=== PATIENT | female | born 1955 | race Caucasian/White ===

== ENCOUNTER → 2018-07-13 | Outpatient (CLI) | payer MEDICARE ==
[2018-07-13 09:52] LABS: CULTURE INDICATED? YES; MICROSCOPIC AUTO
[2018-07-13 09:54] LABS: BASOPHILS # (AUTO) 0.03 x10^3/uL (0-0.1); BASOPHILS % (AUTO) 0 % (0-1); EOSINOPHILS # (AUTO) 0.21 x10^3/uL (0-0.4); EOSINOPHILS % (AUTO) 2 % (1-7); HCT (SEDRATE) 44.3 % (34.6-47.8); LYMPHOCYTES % (AUTO) 20 % (22-44); MD NO; MEAN CORPUSCULAR HEMOGLOBIN 32.2 pg (27.0-34.8); MEAN CORPUSCULAR HGB CONC 34.6 g/dL (32.4-35.8); MEAN CORPUSCULAR VOLUME 93.1 fL (80-100); MEAN PLATELET VOLUME 7.7 fL (7.4-10.4); MONOCYTES # (AUTO) 0.42 x10^3/uL (0.2-0.8); MONOCYTES % (AUTO) 4 % (2-9); NEUTROPHILS # (AUTO) 7.34 x10^3/uL (1.8-6.8); NEUTROPHILS % (AUTO) 73 % (42-75); PLATELET COUNT 201 x10^3/uL (130-400); RED BLOOD COUNT 4.79 x10^6/uL (3.82-5.3); RED CELL DISTRIBUTION WIDTH 12.6 % (9.6-15.2)
[2018-07-13 10:02] LABS: INTERNATIONAL NORMALIZED RATIO 0.97 (0.93-1.1); PROTHROMBIN TIME 10.2 Seconds (9.6-11.5)
[2018-07-13 10:12] LABS: CALCIUM 9.1 mg/dL (8.5-10.1)
[2018-07-13 10:41] LABS: ALANINE AMINOTRANSFERASE 22 U/L (12-78); ALBUMIN 4.1 g/dL (3.4-5.0); ALKALINE PHOSPHATASE 47 U/L (45-117); ANION GAP 6 mmol/L (5-15); BILIRUBIN,TOTAL 0.4 mg/dL (0.2-1.0); CHLORIDE 109 mmol/L (98-107); CREATININE 0.92 mg/dL (0.55-1.02); TOTAL PROTEIN 7.2 g/dL (6.4-8.2)
== END | disposition home or self-care (01) ==
LOC: STAR 08:21
PROVIDERS: ATTEND Orthopaedic Surgery Orthopaedic Surgery of the Spine
DX: Z01.818 Encounter for other preprocedural examination (principal); M41.9 Scoliosis, unspecified; M48.061 Spinal stenosis, lumbar region without neurogenic claudication; M54.16 Radiculopathy, lumbar region; R94.31 Abnormal electrocardiogram [ECG] [EKG]
CPT/HCPCS: 36415; 71046; 80053; 81001; 85025; 85610; 85651; 85730; 87077; 87086; 93005

== ENCOUNTER 2018-07-19 08:31 | Inpatient (IN) | payer MEDICARE ==
[2018-07-13 09:20] VITALS: BP 107/65
[~2018-07-19] VITALS: Ht 162.6 cm; Wt 78.0 kg
[~2018-07-19 08:31] MED LIST: CALC600T4 PO; CETI-158 PO; CHOL400T10 PO; CYAN25003 PO; LACT1CAP37 PO; MULT1TAB60 PO; OMEP20TA62 PO; OXYC10TA6 PO; POLY17PO5 PO; TRAZ-137 PO
[2018-07-19] MEDS ORDERED: VANCOMYCIN PMX 1GM/200ML 200 ML IV ONE (09:08)
[2018-07-19] MEDS ORDERED: LACTATED RINGERS 1,000 ML IV SCH (09:30)
[2018-07-19] MEDS ORDERED: BUPIVACAINE/PF-EPI 0.5% 1:200K ONE (10:21)
[2018-07-19] MEDS ORDERED: TRANEXAMIC ACID 100 MG/ML, 10ML ONE ×2 (10:21→10:22)
[2018-07-19] MEDS ORDERED: THROMBIN 20,000 UNIT VIAL TP ONE (10:22)
[2018-07-19] MEDS ORDERED: VANCOMYCIN 1,000 MG ONE (10:22)
[2018-07-19] MEDS ORDERED: BACITRACIN 50,000 UNIT ONE (10:22)
[2018-07-19] MEDS ORDERED: MICROFIBRILLAR COLLAGEN 1 GM TP ONE (10:22)
[2018-07-19] MEDS ORDERED: KETAMINE 10 MG/ML, 20ML ONE (10:26)
[2018-07-19] MEDS ORDERED: SUFentanil 50 MCG/ML, 5ML ONE (10:27)
[2018-07-19] MEDS ORDERED: OxyconTIN ER 10 MG TAB.ER PO ONE (10:30)
[2018-07-19] MEDS ORDERED: SCOPOLAMINE PATCH, 1.5MG PATCH.TD72 TD ONE (10:30)
[2018-07-19] MEDS ORDERED: ACETAMINOPHEN 500 MG TABLET PO ONE (10:30)
[2018-07-19] MEDS ORDERED: GABAPENTIN 300 MG CAPSULE PO ONE (10:30)
[2018-07-19] MEDS ORDERED: PROPOFOL 150 ML ONE (10:36)
[2018-07-19] MEDS ORDERED: OXYcodone 5 MG/5 ML ORAL.SOL UDC PO PRN (11:00)
[2018-07-19] MEDS ORDERED: FENTANYL PF 100 MCG/2ML IV PRN (11:00)
[2018-07-19] MEDS ORDERED: PROMETHAZINE 25 MG/ML, 1ML IV PRN (11:00)
[2018-07-19] MEDS ORDERED: ONDANSETRON 2MG/ML, 2ML IV PRN ×2 (11:00→20:30)
[2018-07-19] MEDS ORDERED: hydrALAzine 20 MG/ML, 1ML IV PRN (11:00)
[2018-07-19] MEDS ORDERED: LABETALOL 5MG/ML, 20ML IV PRN ×2 (11:00→20:30)
[2018-07-19] MEDS ORDERED: ONDANSETRON ODT 8 MG PO PRN (11:00)
[2018-07-19] MEDS ORDERED: EPHEDRINE 50 MG/ML, 1ML ONE (11:08)
[2018-07-19] MEDS ORDERED: PROPOFOL 10 MG/ML, 50ML ONE (11:08)
[2018-07-19] MEDS ORDERED: SUCCINYLCHOLINE 20 MG/ML, 10ML ONE (13:45)
[2018-07-19] MEDS ORDERED: NEOSTIGMINE 1 MG/ML, 10ML ONE (13:45)
[2018-07-19] MEDS ORDERED: CEFAZOLIN 1,000 MG ONE (13:45)
[2018-07-19] MEDS ORDERED: GLYCOPYRROLATE 0.2MG/1ML, 5ML ONE (13:45)
[2018-07-19] MEDS ORDERED: DEXAMETHASONE 4 MG/ML, 1ML ONE (13:45)
[2018-07-19] MEDS ORDERED: ONDANSETRON 2MG/ML, 2ML ONE (13:45)
[2018-07-19] MEDS ORDERED: LIDOCAINE-MPF 2% ,5ML ONE ×3 (13:45)
[2018-07-19] MEDS ORDERED: ROCURONIUM 10MG/ML,5ML ONE (13:45)
[2018-07-19] MEDS ORDERED: PROPOFOL 10 MG/ML, 20ML ONE (13:45)
[2018-07-19] MEDS: HYDROmorphone PCA 30 MG/30 ML IV PRN (17:33)
[2018-07-19] MEDS ORDERED: FENTANYL PF 100 MCG/2ML ONE (17:40)
[2018-07-19] MEDS ORDERED: HYDROmorphone 2 MG/ML, 1ML ONE (17:41)
[2018-07-19] MEDS ORDERED: OXYcodone 5 MG/5 ML ORAL.SOL UDC ONE (17:41)
[2018-07-19] MEDS: HYDROmorphone 2 MG/ML, 1ML IVPush PRN ×4 (17:52→18:58)
[2018-07-19 19:48] VITALS: BP 124/74
[2018-07-19] MEDS ORDERED: CEFAZOLIN PMX 1GM/50ML 50 ML IVPB SCH (20:30)
[2018-07-19] MEDS ORDERED: HYDROmorphone 2MG TABLET PO PRN (20:30)
[2018-07-19] MEDS ORDERED: DIPHENHYDRAMINE 50 MG CAPSULE PO PRN (20:30)
[2018-07-19] MEDS ORDERED: KETOROLAC 30 MG/1 ML IV ONE (20:30)
[2018-07-19] MEDS ORDERED: ACETAMINOPHEN 650 MG SUPP PR PRN (20:30)
[2018-07-19] MEDS ORDERED: DIAZEPAM 5 MG/ML, 2ML IV PRN (20:30)
[2018-07-19] MEDS ORDERED: ACETAMINOPHEN 500 MG TABLET PO PRN (20:30)
[2018-07-19] MEDS ORDERED: DIPHENHYDRAMINE 50 MG/ML, 1ML IVPush PRN (20:30)
[2018-07-19] MEDS ORDERED: HYDROmorphone 2 MG/ML, 1ML IM PRN (20:30)
[2018-07-19] MEDS ORDERED: SODIUM CHLORIDE 0.9% 1,000ML IV SCH (20:30)
[2018-07-19] MEDS ORDERED: PHARMACY MAY ADJ FOR RENAL FX MC PRN (20:30)
[2018-07-19] MEDS ORDERED: PROMETHAZINE 25 MG/ML, 1ML IM PRN (20:30)
[2018-07-19] MEDS ORDERED: DIPHENHYDRAMINE 50 MG/ML, 1ML IM PRN (20:30)
[2018-07-19] MEDS ORDERED: BISACODYL 10 MG SUPP PR PRN (20:30)
[2018-07-19] MEDS ORDERED: MAGNESIUM HYDROXIDE 8%, 30ML UDC PO PRN (20:30)
[2018-07-19] MEDS ORDERED: POLYETHYLENE GLYCOL 17 GM PACKET PO PRN (21:00)
[2018-07-19] MEDS ORDERED: TRAZODONE 100MG TABLET PO PRN (21:00)
[2018-07-19] MEDS ORDERED: ZOLPIDEM 5MG TABLET PO PRN (21:00)
[2018-07-19] MEDS: CHOLECALCIFEROL 400 UNITS TABLET PO SCH (21:30)
[2018-07-19] MEDS: CALCIUM CARBONATE 500 MG TAB.CHEW PO SCH (21:30)
[2018-07-19] MEDS: D5%-0.9% NACL+KCL 20MEQ 1,000 ML IV SCH (21:30)
[2018-07-19] MEDS: CEFAZOLIN PMX 1GM/50ML 50 ML IVPB SCH (21:56)
[2018-07-20 00:06] VITALS: BP 106/66
[2018-07-20] MEDS ORDERED: KETOROLAC 30 MG/1 ML IM PRN (04:00)
[2018-07-20 04:19] VITALS: BP 105/58
[2018-07-20] MEDS: OMEPRAZOLE 20 MG CAPSULE.DR PO SCH (05:08)
[2018-07-20] MEDS: CEFAZOLIN PMX 1GM/50ML 50 ML IVPB SCH (05:08)
[2018-07-20 05:46] LABS: BASOPHILS # (AUTO) 0.02 x10^3/uL (0-0.1); BASOPHILS % (AUTO) 0 % (0-1); EOSINOPHILS % (AUTO) 0 % (1-7); LYMPHOCYTES # (AUTO) 1.23 x10^3/uL (1-3.4); LYMPHOCYTES % (AUTO) 10 % (22-44); MD NO; MEAN CORPUSCULAR HEMOGLOBIN 32.8 pg (27.0-34.8); MEAN CORPUSCULAR HGB CONC 34.9 g/dL (32.4-35.8); MEAN CORPUSCULAR VOLUME 94.1 fL (80-100); MEAN PLATELET VOLUME 7.4 fL (7.4-10.4); MONOCYTES # (AUTO) 0.98 x10^3/uL (0.2-0.8); MONOCYTES % (AUTO) 8 % (2-9); NEUTROPHILS # (AUTO) 10.73 x10^3/uL (1.8-6.8); NEUTROPHILS % (AUTO) 83 % (42-75); PLATELET COUNT 177 x10^3/uL (130-400); RED BLOOD COUNT 3.13 x10^6/uL (3.82-5.3); RED CELL DISTRIBUTION WIDTH 12.9 % (9.6-15.2)
[2018-07-20] MEDS: D5%-0.9% NACL+KCL 20MEQ 1,000 ML IV SCH ×2 (06:24→18:05)
[2018-07-20 06:56] VITALS: BP 116/70
[2018-07-20] MEDS: CYANOCOBALAMIN 1,000 MCG TABLET PO SCH (09:35)
[2018-07-20] MEDS: CALCIUM CARBONATE 500 MG TAB.CHEW PO SCH ×2 (09:35→20:38)
[2018-07-20] MEDS: LACTOBACILLUS CHEW TABLET PO SCH (09:35)
[2018-07-20] MEDS: CHOLECALCIFEROL 400 UNITS TABLET PO SCH ×2 (09:35→20:38)
[2018-07-20] MEDS: SENNA/DOCUSATE TABLET PO SCH (09:35)
[2018-07-20] MEDS: MULTIVITAMIN 1 TABLET PO SCH (09:35)
[2018-07-20] MEDS: CETIRIZINE 10 MG TABLET PO SCH (09:35)
[2018-07-20 12:32] VITALS: BP 112/67
[2018-07-20] MEDS: DEXAMETHASONE 4 MG/ML, 1ML IV PRN ×2 (15:44→22:37)
[2018-07-20] MEDS: OXYcodone IR 5MG TABLET PO PRN ×2 (15:44→20:38)
[2018-07-20 19:19] VITALS: BP 137/70
[2018-07-21 01:12] VITALS: BP 136/79
[2018-07-21] MEDS: D5%-0.9% NACL+KCL 20MEQ 1,000 ML IV SCH ×2 (02:37→13:53)
[2018-07-21] MEDS: OXYcodone IR 5MG TABLET PO PRN ×7 (02:44→21:01)
[2018-07-21 04:48] LABS: BASOPHILS # (AUTO) 0.01 x10^3/uL (0-0.1); BASOPHILS % (AUTO) 0 % (0-1); EOSINOPHILS % (AUTO) 0 % (1-7); LYMPHOCYTES % (AUTO) 5 % (22-44); MD NO; MEAN CORPUSCULAR HEMOGLOBIN 32.8 pg (27.0-34.8); MEAN CORPUSCULAR HGB CONC 34.7 g/dL (32.4-35.8); MEAN CORPUSCULAR VOLUME 94.4 fL (80-100); MEAN PLATELET VOLUME 7.7 fL (7.4-10.4); MONOCYTES # (AUTO) 0.62 x10^3/uL (0.2-0.8); MONOCYTES % (AUTO) 4 % (2-9); NEUTROPHILS # (AUTO) 14.63 x10^3/uL (1.8-6.8); NEUTROPHILS % (AUTO) 91 % (42-75); PLATELET COUNT 162 x10^3/uL (130-400); RED BLOOD COUNT 2.88 x10^6/uL (3.82-5.3); RED CELL DISTRIBUTION WIDTH 13.1 % (9.6-15.2)
[2018-07-21] MEDS: OMEPRAZOLE 20 MG CAPSULE.DR PO SCH (05:44)
[2018-07-21 07:12] VITALS: BP 138/74
[2018-07-21] MEDS: CHOLECALCIFEROL 400 UNITS TABLET PO SCH ×2 (09:25→21:01)
[2018-07-21] MEDS: MULTIVITAMIN 1 TABLET PO SCH (09:25)
[2018-07-21] MEDS: CETIRIZINE 10 MG TABLET PO SCH (09:26)
[2018-07-21] MEDS: SENNA/DOCUSATE TABLET PO SCH (09:26)
[2018-07-21] MEDS: CALCIUM CARBONATE 500 MG TAB.CHEW PO SCH ×2 (09:26→21:01)
[2018-07-21] MEDS: LACTOBACILLUS CHEW TABLET PO SCH (09:26)
[2018-07-21] MEDS: CYANOCOBALAMIN 1,000 MCG TABLET PO SCH (09:52)
[2018-07-21] MEDS: HYDROmorphone PCA 30 MG/30 ML IV PRN (12:02)
[2018-07-21 13:00] VITALS: BP 152/71
[2018-07-21] MEDS ORDERED: HYDROmorphone PCA 30 MG/30 ML IV PRN (13:12)
[2018-07-21 20:55] VITALS: BP 144/71
[2018-07-21] MEDS: DIAZEPAM 5 MG TABLET PO PRN (21:52)
[2018-07-21] MEDS: DEXAMETHASONE 4 MG/ML, 1ML IV PRN (21:53)
[2018-07-22] MEDS: OXYcodone IR 5MG TABLET PO PRN ×3 (00:21→06:29)
[2018-07-22 00:56] VITALS: BP 146/71
[2018-07-22] MEDS: D5%-0.9% NACL+KCL 20MEQ 1,000 ML IV SCH ×3 (01:44→21:16)
[2018-07-22] MEDS: DIAZEPAM 5 MG TABLET PO PRN (04:30)
[2018-07-22 05:14] LABS: BASOPHILS # (AUTO) 0.01 x10^3/uL (0-0.1); BASOPHILS % (AUTO) 0 % (0-1); EOSINOPHILS % (AUTO) 0 % (1-7); LYMPHOCYTES # (AUTO) 0.87 x10^3/uL (1-3.4); LYMPHOCYTES % (AUTO) 6 % (22-44); MD NO; MEAN CORPUSCULAR HEMOGLOBIN 33.1 pg (27.0-34.8); MEAN CORPUSCULAR HGB CONC 34.9 g/dL (32.4-35.8); MEAN CORPUSCULAR VOLUME 94.7 fL (80-100); MEAN PLATELET VOLUME 7.5 fL (7.4-10.4); MONOCYTES # (AUTO) 0.51 x10^3/uL (0.2-0.8); MONOCYTES % (AUTO) 4 % (2-9); NEUTROPHILS # (AUTO) 12.87 x10^3/uL (1.8-6.8); NEUTROPHILS % (AUTO) 90 % (42-75); PLATELET COUNT 154 x10^3/uL (130-400); RED BLOOD COUNT 2.59 x10^6/uL (3.82-5.3); RED CELL DISTRIBUTION WIDTH 13.3 % (9.6-15.2)
[2018-07-22] MEDS: OMEPRAZOLE 20 MG CAPSULE.DR PO SCH (06:29)
[2018-07-22 09:13] VITALS: BP 136/60
[2018-07-22] MEDS: CYANOCOBALAMIN 1,000 MCG TABLET PO SCH (09:23)
[2018-07-22] MEDS: CHOLECALCIFEROL 400 UNITS TABLET PO SCH ×2 (09:25→21:16)
[2018-07-22] MEDS: CETIRIZINE 10 MG TABLET PO SCH (09:25)
[2018-07-22] MEDS: LACTOBACILLUS CHEW TABLET PO SCH (09:25)
[2018-07-22] MEDS: CALCIUM CARBONATE 500 MG TAB.CHEW PO SCH ×2 (09:26→21:16)
[2018-07-22] MEDS: MULTIVITAMIN 1 TABLET PO SCH (09:29)
[2018-07-22] MEDS: SENNA/DOCUSATE TABLET PO SCH (09:29)
[2018-07-22] MEDS ORDERED: OXYcodone IR 5MG TABLET PO SCH (13:30)
[2018-07-22] MEDS: NAPROXEN 500 MG TABLET PO SCH (13:58)
[2018-07-22] MEDS: OXYcodone IR 5MG TABLET PO SCH ×4 (13:58→22:37)
[2018-07-22 14:43] VITALS: BP 131/70
[2018-07-22] MEDS: DEXAMETHASONE 4 MG/ML, 1ML IV PRN (16:32)
[2018-07-22 18:33] VITALS: BP 123/70
[2018-07-23 00:57] VITALS: BP 146/69
[2018-07-23] MEDS: D5%-0.9% NACL+KCL 20MEQ 1,000 ML IV SCH ×2 (00:59→17:08)
[2018-07-23] MEDS: OXYcodone IR 5MG TABLET PO SCH ×5 (01:34→13:30)
[2018-07-23] MEDS: NAPROXEN 500 MG TABLET PO SCH ×2 (01:34→15:38)
[2018-07-23] MEDS: OMEPRAZOLE 20 MG CAPSULE.DR PO SCH (04:48)
[2018-07-23 05:56] LABS: BASOPHILS # (AUTO) 0.03 x10^3/uL (0-0.1); BASOPHILS % (AUTO) 0 % (0-1); EOSINOPHILS # (AUTO) 0.01 x10^3/uL (0-0.4); EOSINOPHILS % (AUTO) 0 % (1-7); LYMPHOCYTES # (AUTO) 1.34 x10^3/uL (1-3.4); LYMPHOCYTES % (AUTO) 9 % (22-44); MD NO; MEAN CORPUSCULAR HEMOGLOBIN 32.5 pg (27.0-34.8); MEAN CORPUSCULAR HGB CONC 34.5 g/dL (32.4-35.8); MEAN CORPUSCULAR VOLUME 94.3 fL (80-100); MEAN PLATELET VOLUME 7.6 fL (7.4-10.4); MONOCYTES # (AUTO) 0.75 x10^3/uL (0.2-0.8); MONOCYTES % (AUTO) 5 % (2-9); NEUTROPHILS # (AUTO) 12.62 x10^3/uL (1.8-6.8); NEUTROPHILS % (AUTO) 86 % (42-75); PLATELET COUNT 222 x10^3/uL (130-400); RED BLOOD COUNT 2.69 x10^6/uL (3.82-5.3)
[2018-07-23 07:30] VITALS: BP 138/64
[2018-07-23] MEDS: MULTIVITAMIN 1 TABLET PO SCH (07:56)
[2018-07-23] MEDS: CALCIUM CARBONATE 500 MG TAB.CHEW PO SCH ×2 (07:56→20:50)
[2018-07-23] MEDS: SENNA/DOCUSATE TABLET PO SCH (07:56)
[2018-07-23] MEDS: CYANOCOBALAMIN 1,000 MCG TABLET PO SCH (07:57)
[2018-07-23] MEDS: LACTOBACILLUS CHEW TABLET PO SCH (07:57)
[2018-07-23] MEDS: CETIRIZINE 10 MG TABLET PO SCH (07:57)
[2018-07-23] MEDS: CHOLECALCIFEROL 400 UNITS TABLET PO SCH ×2 (07:57→20:50)
[2018-07-23] MEDS ORDERED: DIAZEPAM 5 MG TABLET ONE ×3 (08:12→22:03)
[2018-07-23] MEDS: DIAZEPAM 5 MG TABLET PO PRN (08:15)
[2018-07-23 13:25] VITALS: BP 159/79
[2018-07-23] MEDS: DIAZEPAM 10 MG TABLET PO PRN ×2 (14:16→22:34)
[2018-07-23 18:45] VITALS: BP 153/72
[2018-07-23] MEDS ORDERED: HYDROmorphone 2MG TABLET PO PRN (20:30)
[2018-07-23] MEDS: OXYcodone IR 5MG TABLET PO PRN (20:50)
[2018-07-24 00:20] VITALS: BP 132/72
[2018-07-24] MEDS: NAPROXEN 500 MG TABLET PO SCH ×2 (01:39→14:35)
[2018-07-24] MEDS: HYDROmorphone 2MG TABLET PO PRN ×4 (01:39→20:10)
[2018-07-24] MEDS: D5%-0.9% NACL+KCL 20MEQ 1,000 ML IV SCH ×3 (02:51→19:53)
[2018-07-24] MEDS: OMEPRAZOLE 20 MG CAPSULE.DR PO SCH (05:13)
[2018-07-24] MEDS: DEXAMETHASONE 4 MG/ML, 1ML IV PRN ×3 (05:13→18:37)
[2018-07-24] MEDS: OXYcodone IR 5MG TABLET PO PRN ×4 (05:14→22:44)
[2018-07-24 06:20] LABS: BASOPHILS # (AUTO) 0.03 x10^3/uL (0-0.1); BASOPHILS % (AUTO) 0 % (0-1); EOSINOPHILS # (AUTO) 0.56 x10^3/uL (0-0.4); EOSINOPHILS % (AUTO) 5 % (1-7); LYMPHOCYTES # (AUTO) 2.67 x10^3/uL (1-3.4); LYMPHOCYTES % (AUTO) 22 % (22-44); MD NO; MEAN CORPUSCULAR HEMOGLOBIN 32.6 pg (27.0-34.8); MEAN CORPUSCULAR HGB CONC 34.5 g/dL (32.4-35.8); MEAN CORPUSCULAR VOLUME 94.4 fL (80-100); MEAN PLATELET VOLUME 7.2 fL (7.4-10.4); MONOCYTES # (AUTO) 0.85 x10^3/uL (0.2-0.8); MONOCYTES % (AUTO) 7 % (2-9); NEUTROPHILS # (AUTO) 8.15 x10^3/uL (1.8-6.8); NEUTROPHILS % (AUTO) 66 % (42-75); PLATELET COUNT 283 x10^3/uL (130-400); RED CELL DISTRIBUTION WIDTH 13.3 % (9.6-15.2)
[2018-07-24] MEDS ORDERED: DIAZEPAM 5 MG TABLET ONE ×3 (06:24→22:11)
[2018-07-24] MEDS: DIAZEPAM 10 MG TABLET PO PRN ×3 (06:32→22:20)
[2018-07-24 06:57] VITALS: BP 129/70
[2018-07-24 07:43] VITALS: BP 116/49
[2018-07-24] MEDS: SENNA/DOCUSATE TABLET PO SCH (09:00)
[2018-07-24] MEDS: CALCIUM CARBONATE 500 MG TAB.CHEW PO SCH ×2 (09:44→20:11)
[2018-07-24] MEDS: MULTIVITAMIN 1 TABLET PO SCH (09:44)
[2018-07-24] MEDS: LACTOBACILLUS CHEW TABLET PO SCH (09:44)
[2018-07-24] MEDS: CHOLECALCIFEROL 400 UNITS TABLET PO SCH ×2 (09:44→20:11)
[2018-07-24] MEDS: CETIRIZINE 10 MG TABLET PO SCH (09:44)
[2018-07-24] MEDS: CYANOCOBALAMIN 1,000 MCG TABLET PO SCH (09:45)
[2018-07-24 14:00] VITALS: BP 132/74
[2018-07-24 18:29] VITALS: BP 119/66
[2018-07-24] MEDS: GABAPENTIN 100 MG CAPSULE PO SCH (20:10)
[2018-07-25 01:40] VITALS: BP 128/69
[2018-07-25] MEDS: NAPROXEN 500 MG TABLET PO SCH ×2 (01:42→13:52)
[2018-07-25] MEDS: DEXAMETHASONE 4 MG/ML, 1ML IV PRN (01:43)
[2018-07-25] MEDS: HYDROmorphone 2MG TABLET PO PRN ×3 (04:56→16:31)
[2018-07-25] MEDS: OMEPRAZOLE 20 MG CAPSULE.DR PO SCH (04:56)
[2018-07-25 05:24] LABS: BASOPHILS % (AUTO) 0 % (0-1); EOSINOPHILS # (AUTO) 0.01 x10^3/uL (0-0.4); EOSINOPHILS % (AUTO) 0 % (1-7); LYMPHOCYTES # (AUTO) 0.96 x10^3/uL (1-3.4); LYMPHOCYTES % (AUTO) 7 % (22-44); MD NO; MEAN CORPUSCULAR HEMOGLOBIN 32.7 pg (27.0-34.8); MEAN CORPUSCULAR HGB CONC 34.4 g/dL (32.4-35.8); MEAN CORPUSCULAR VOLUME 95.1 fL (80-100); MEAN PLATELET VOLUME 7.1 fL (7.4-10.4); MONOCYTES # (AUTO) 0.55 x10^3/uL (0.2-0.8); MONOCYTES % (AUTO) 4 % (2-9); NEUTROPHILS # (AUTO) 13.29 x10^3/uL (1.8-6.8); NEUTROPHILS % (AUTO) 90 % (42-75); PLATELET COUNT 276 x10^3/uL (130-400); RED BLOOD COUNT 2.63 x10^6/uL (3.82-5.3); RED CELL DISTRIBUTION WIDTH 12.9 % (9.6-15.2)
[2018-07-25] MEDS ORDERED: DIAZEPAM 5 MG TABLET ONE ×2 (06:39→17:38)
[2018-07-25 08:15] VITALS: BP 143/58
[2018-07-25] MEDS: CYANOCOBALAMIN 1,000 MCG TABLET PO SCH (08:17)
[2018-07-25] MEDS: CHOLECALCIFEROL 400 UNITS TABLET PO SCH ×2 (08:18→21:20)
[2018-07-25] MEDS: OXYcodone IR 5MG TABLET PO PRN ×4 (08:18→17:39)
[2018-07-25] MEDS: MULTIVITAMIN 1 TABLET PO SCH (08:19)
[2018-07-25] MEDS: LACTOBACILLUS CHEW TABLET PO SCH (08:19)
[2018-07-25] MEDS: CETIRIZINE 10 MG TABLET PO SCH (08:19)
[2018-07-25] MEDS: CALCIUM CARBONATE 500 MG TAB.CHEW PO SCH ×2 (08:19→21:19)
[2018-07-25] MEDS: GABAPENTIN 100 MG CAPSULE PO SCH (08:19)
[2018-07-25] MEDS: SENNA/DOCUSATE TABLET PO SCH (08:19)
[2018-07-25] MEDS: D5%-0.9% NACL+KCL 20MEQ 1,000 ML IV SCH ×2 (08:24→23:00)
[2018-07-25] MEDS ORDERED: METHOCARBAMOL 750 MG TABLET PO PRN (08:30)
[2018-07-25 15:46] VITALS: BP 118/67
[2018-07-25] MEDS: GABAPENTIN 300 MG CAPSULE PO SCH ×2 (16:31→21:20)
[2018-07-25] MEDS: DIAZEPAM 10 MG TABLET PO PRN (17:39)
[2018-07-25 19:24] VITALS: BP 103/55
[2018-07-26 01:17] VITALS: BP 107/60
[2018-07-26] MEDS: NAPROXEN 500 MG TABLET PO SCH ×2 (01:29→13:31)
[2018-07-26] MEDS: OXYcodone IR 5MG TABLET PO PRN ×3 (01:29→09:44)
[2018-07-26] MEDS ORDERED: DIAZEPAM 5 MG TABLET ONE ×2 (03:23→12:03)
[2018-07-26] MEDS: DIAZEPAM 10 MG TABLET PO PRN ×2 (03:25→12:04)
[2018-07-26 05:44] LABS: BASOPHILS # (AUTO) 0.03 x10^3/uL (0-0.1); BASOPHILS % (AUTO) 0 % (0-1); EOSINOPHILS % (AUTO) 5 % (1-7); LYMPHOCYTES # (AUTO) 3.99 x10^3/uL (1-3.4); LYMPHOCYTES % (AUTO) 32 % (22-44); MD NO; MEAN CORPUSCULAR HEMOGLOBIN 32.4 pg (27.0-34.8); MEAN CORPUSCULAR HGB CONC 34.3 g/dL (32.4-35.8); MEAN CORPUSCULAR VOLUME 94.6 fL (80-100); MEAN PLATELET VOLUME 6.8 fL (7.4-10.4); MONOCYTES % (AUTO) 6 % (2-9); NEUTROPHILS # (AUTO) 7.01 x10^3/uL (1.8-6.8); NEUTROPHILS % (AUTO) 56 % (42-75); PLATELET COUNT 329 x10^3/uL (130-400); RED BLOOD COUNT 2.56 x10^6/uL (3.82-5.3); RED CELL DISTRIBUTION WIDTH 13.6 % (9.6-15.2)
[2018-07-26] MEDS: OMEPRAZOLE 20 MG CAPSULE.DR PO SCH (05:47)
[2018-07-26] MEDS: LACTOBACILLUS CHEW TABLET PO SCH (07:33)
[2018-07-26] MEDS: GABAPENTIN 300 MG CAPSULE PO SCH (07:33)
[2018-07-26] MEDS: CALCIUM CARBONATE 500 MG TAB.CHEW PO SCH (07:33)
[2018-07-26] MEDS: HYDROmorphone 2MG TABLET PO PRN ×2 (07:33→12:21)
[2018-07-26] MEDS: MULTIVITAMIN 1 TABLET PO SCH (07:33)
[2018-07-26] MEDS: CHOLECALCIFEROL 400 UNITS TABLET PO SCH (07:33)
[2018-07-26] MEDS: CETIRIZINE 10 MG TABLET PO SCH (07:33)
[2018-07-26] MEDS: CYANOCOBALAMIN 1,000 MCG TABLET PO SCH (07:34)
[2018-07-26] MEDS: SENNA/DOCUSATE TABLET PO SCH (07:35)
[2018-07-26] MEDS: D5%-0.9% NACL+KCL 20MEQ 1,000 ML IV SCH (07:36)
[2018-07-26 07:51] VITALS: BP 102/54
[2018-07-26 12:56] VITALS: BP 108/67
[2018-07-26] MEDS ORDERED: OXYC10TA6 PO (13:53)
[2018-07-26] MEDS ORDERED: GABA300C10 PO (13:55)
[2018-07-26] MEDS ORDERED: DIAZ5TAB PO (13:55)
[2018-07-26] MEDS ORDERED: CEPH-368 PO (13:56)
[2018-07-26 14:07] VITALS: BP 112/68
== END 2018-07-26 15:55 | DRG 457 ==
LOC: ORIP 08:54 → 4NOR 19:15
PROVIDERS: ADMIT Orthopaedic Surgery Orthopaedic Surgery of the Spine; ATTEND Orthopaedic Surgery Orthopaedic Surgery of the Spine
PROC: 0RG7071 Fusion of 2 to 7 Thoracic Vertebral Joints with Autologous Tissue Substitute, Posterior Approach, Posterior Column, Open Approach (ICD-10-PCS; 2018-07-19)
PROC: 0SG1071 Fusion of 2 or more Lumbar Vertebral Joints with Autologous Tissue Substitute, Posterior Approach, Posterior Column, Open Approach (ICD-10-PCS; 2018-07-19)
PROC: 0SG3071 Fusion of Lumbosacral Joint with Autologous Tissue Substitute, Posterior Approach, Posterior Column, Open Approach (ICD-10-PCS; 2018-07-19)
PROC: 01NB0ZZ Release Lumbar Nerve, Open Approach (ICD-10-PCS; 2018-07-19)
PROC: 4A11X4G Monitoring of Peripheral Nervous Electrical Activity, Intraoperative, External Approach (ICD-10-PCS; 2018-07-19)
PROC: 0RGA071 Fusion of Thoracolumbar Vertebral Joint with Autologous Tissue Substitute, Posterior Approach, Posterior Column, Open Approach (ICD-10-PCS; principal; 2018-07-19 11:00)
DX: M48.061 Spinal stenosis, lumbar region without neurogenic claudication (principal); G95.29 Other cord compression; M41.125 Adolescent idiopathic scoliosis, thoracolumbar region; M54.16 Radiculopathy, lumbar region; G89.29 Other chronic pain; M48.05 Spinal stenosis, thoracolumbar region; G89.18 Other acute postprocedural pain
CPT/HCPCS: 36415; 72110; 85025; 86850; 86900; C1713; G0378; J0690; J1100; J1170; J1885; J2405; J2704; J2710; J3010; J3370; C1760; C1762; C1763; C9352; C9362; J0330; J3480; J7120

== ENCOUNTER 2018-08-05 12:38 | Inpatient (IN) | payer MEDICARE, MEDICAID ==
[~2018-08-05] VITALS: Ht 167.6 cm; Wt 70.8 kg
[~2018-08-05 12:38] MED LIST changes: +CEPH-368 PO; +DIAZ5TAB PO; +GABA300C10 PO
[2018-08-05] MEDS ORDERED: DIPH,PERTUSS(ACELL),TET VAC/PF 0.5 ML IM-VACC ONE ×3 (13:00→13:59)
--- NOTE | 2018-08-05 13:00 | NUR ---
PT PLACED ON BP CUFF, PULSE OX. PT ABLE TO TURN TO SIDE. DRESSING TO BACK REMOVED BY PA, SURGICAL WOUND HEALING WELL. NO DEFORMITY TO LLE, CRAMPING INTERMITTENTLY. HOT PACK APPLIED WITH RELIEF.
[2018-08-05 13:22] LABS: BASOPHILS # (AUTO) 0.11 x10^3/uL (0-0.1); BASOPHILS % (AUTO) 1 % (0-1); EOSINOPHILS # (AUTO) 0.45 x10^3/uL (0-0.4); EOSINOPHILS % (AUTO) 4 % (1-7); LYMPHOCYTES # (AUTO) 1.17 x10^3/uL (1-3.4); LYMPHOCYTES % (AUTO) 11 % (22-44); MD NO; MEAN CORPUSCULAR HEMOGLOBIN 31.9 pg (27.0-34.8); MEAN CORPUSCULAR HGB CONC 33.3 g/dL (32.4-35.8); MEAN CORPUSCULAR VOLUME 95.8 fL (80-100); MEAN PLATELET VOLUME 6.9 fL (7.4-10.4); MONOCYTES # (AUTO) 0.47 x10^3/uL (0.2-0.8); MONOCYTES % (AUTO) 4 % (2-9); NEUTROPHILS # (AUTO) 8.42 x10^3/uL (1.8-6.8); NEUTROPHILS % (AUTO) 79 % (42-75); PLATELET COUNT 414 x10^3/uL (130-400); RED BLOOD COUNT 3.07 x10^6/uL (3.82-5.3); RED CELL DISTRIBUTION WIDTH 13.8 % (9.6-15.2)
[2018-08-05 13:29] LABS: ANION GAP 6 mmol/L (5-15); CALCIUM 8.9 mg/dL (8.5-10.1); CHLORIDE 107 mmol/L (98-107)
--- NOTE | 2018-08-05 14:30 | NUR ---
PT BACK FROM IMAGING. TETANUS GIVEN PER ERP ORDER. PT ROLLED ONTO BEDPAN D/T NEED TO URINATE AND UA ORDERED. IP/MOSAIC TECHNICIAN IN TO CLEAN HEAD WOUND.
--- NOTE | 2018-08-05 15:00 | NUR ---
Bedside SBAR report received from RNAlyson. Pt removed from bed ivey and urine sample sent to lab. Pt aware of plan to have wound on head irrigated. SO remains at bedside.
--- NOTE | 2018-08-05 15:11 | NUR ---
URINE COLLECTED/SENT TO LAB. REPORT TO DAINA MONROY, TRANSFER OF CARE AT THIS TIME.
[2018-08-05 15:24] LABS: MICROSCOPIC AUTO
[2018-08-05 15:28] LABS: CULTURE INDICATED? YES
--- NOTE | 2018-08-05 15:43 | NUR ---
EDT at bedside to irrigate wound.
--- NOTE | 2018-08-05 16:29 | NUR ---
Pt medicated per MAY. EDTs remain at bedside irrigating head wound.
--- NOTE | 2018-08-05 16:56 | NUR ---
Dr. Oconnell at bedside to re-evaluate pt and look at wound on head.
[2018-08-05] MEDS ORDERED: METHOCARBAMOL 1,000 MG in DEXTROSE 5% 100 ML IV ONE (17:00)
[2018-08-05] MEDS ORDERED: LIDOCAINE-MPF 1%, 5ML ONE (17:24)
--- NOTE | 2018-08-05 17:25 | NUR ---
Heather CHENEY, at bedside to staple pt's head wound.
[2018-08-05] MEDS ORDERED: KETAMINE 10 MG/ML, 20ML ONE (17:34)
[2018-08-05] MEDS ORDERED: KETAMINE 100 MG/ML, 5ML IV ONE (18:00)
--- NOTE | 2018-08-05 19:11 | NUR ---
Telephone SBAR report given to RNMerlene. Pt and made aware of new room assignment.
[2018-08-05 19:51] VITALS: BP 132/71
[2018-08-05] MEDS ORDERED: SODIUM CHLORIDE 0.9% 1,000 ML IV SCH (20:58)
[2018-08-05] MEDS ORDERED: DOCUSATE 100 MG CAPSULE PO PRN (21:00)
[2018-08-05] MEDS ORDERED: ONDANSETRON 2MG/ML, 2ML IVPush PRN (21:00)
[2018-08-05] MEDS ORDERED: hydrALAzine 20 MG/ML, 1ML IVPush PRN (21:00)
[2018-08-05] MEDS ORDERED: POLYETHYLENE GLYCOL 17 GM PACKET PO PRN (21:00)
[2018-08-05] MEDS ORDERED: BISACODYL 10 MG SUPP PR PRN (21:00)
[2018-08-05] MEDS ORDERED: PROMETHAZINE 25 MG/ML, 1ML IM PRN (21:00)
[2018-08-05] MEDS ORDERED: ONDANSETRON ODT 4 MG PO PRN (21:00)
[2018-08-05] MEDS ORDERED: ACETAMINOPHEN 325 MG TABLET PO PRN (21:00)
[2018-08-05] MEDS: HYDROcodone/APAP 5/325 TABLET PO PRN (21:32)
[2018-08-05] MEDS: TRAZODONE 100MG TABLET PO SCH (21:32)
[2018-08-05] MEDS: CHOLECALCIFEROL 400 UNITS TABLET PO SCH (21:32)
[2018-08-05] MEDS: CEPHALEXIN 500 MG CAPSULE PO SCH (21:32)
[2018-08-05 21:36] LABS: FREE T4 (FREE THYROXINE) 1.46 ng/dL (0.76-1.46); THYROID STIMULATING HORMONE 2.25 mIU/L (0.358-3.740)
[2018-08-05 22:09] LABS: HEMOGLOBIN A1C 5.1 % (4.2-6.3)
[2018-08-05] MEDS: GABAPENTIN 300 MG CAPSULE PO PRN (23:33)
[2018-08-06 02:11] VITALS: BP 125/69
[2018-08-06 02:33] VITALS: BP 132/71
[2018-08-06 05:49] LABS: BASOPHILS # (AUTO) 0.05 x10^3/uL (0-0.1); BASOPHILS % (AUTO) 1 % (0-1); EOSINOPHILS # (AUTO) 0.73 x10^3/uL (0-0.4); EOSINOPHILS % (AUTO) 8 % (1-7); LYMPHOCYTES # (AUTO) 2.06 x10^3/uL (1-3.4); LYMPHOCYTES % (AUTO) 23 % (22-44); MD NO; MEAN CORPUSCULAR HEMOGLOBIN 31.8 pg (27.0-34.8); MEAN CORPUSCULAR HGB CONC 33.1 g/dL (32.4-35.8); MEAN CORPUSCULAR VOLUME 95.8 fL (80-100); MEAN PLATELET VOLUME 6.8 fL (7.4-10.4); MONOCYTES # (AUTO) 0.56 x10^3/uL (0.2-0.8); MONOCYTES % (AUTO) 6 % (2-9); NEUTROPHILS # (AUTO) 5.69 x10^3/uL (1.8-6.8); NEUTROPHILS % (AUTO) 63 % (42-75); PLATELET COUNT 370 x10^3/uL (130-400); RED CELL DISTRIBUTION WIDTH 13.9 % (9.6-15.2)
[2018-08-06] MEDS: OMEPRAZOLE 20 MG CAPSULE.DR PO SCH (05:51)
[2018-08-06] MEDS: CEPHALEXIN 500 MG CAPSULE PO SCH (05:51)
[2018-08-06 06:32] LABS: ALBUMIN 2.6 g/dL (3.4-5.0); ANION GAP 6 mmol/L (5-15); CALCIUM 8.6 mg/dL (8.5-10.1); CHLORIDE 113 mmol/L (98-107)
[2018-08-06 06:36] LABS: ALANINE AMINOTRANSFERASE 13 U/L (12-78); ALKALINE PHOSPHATASE 74 U/L (45-117); BILIRUBIN,TOTAL 0.5 mg/dL (0.2-1.0); CHOL/HDL RATIO 3.6; CHOLESTEROL, TOTAL 130 mg/dL (140-239); CREATININE 1.02 mg/dL (0.55-1.02); HDL CHOL % 28 % (28-40); HDL CHOLESTEROL (DIRECT) 36 mg/dL (40-60); LDL CHOLESTEROL,CALCULATED 73 mg/dL (54-169); TOTAL PROTEIN 5.3 g/dL (6.4-8.2); TRIGLYCERIDES 106 mg/dL (50-200); VLDL CHOLESTEROL 21 mg/dL (0-25)
[2018-08-06] MEDS: HYDROcodone/APAP 5/325 TABLET PO PRN ×4 (07:12→23:13)
[2018-08-06 08:18] VITALS: BP 103/61
[2018-08-06] MEDS: CHOLECALCIFEROL 400 UNITS TABLET PO SCH ×2 (08:18→20:04)
[2018-08-06] MEDS: CALCIUM CARBONATE 500 MG TAB.CHEW PO SCH ×2 (08:18→20:04)
[2018-08-06] MEDS: MULTIVITAMIN 1 TABLET PO SCH (08:18)
[2018-08-06] MEDS: LACTOBACILLUS CHEW TABLET PO SCH (08:18)
[2018-08-06] MEDS: CETIRIZINE 10 MG TABLET PO SCH (08:18)
[2018-08-06] MEDS: CYANOCOBALAMIN 1,000 MCG TABLET PO SCH (08:20)
[2018-08-06] MEDS: CEFTRIAXONE PMX 1GM/50ML 50 ML IV SCH (11:51)
[2018-08-06] MEDS: GABAPENTIN 300 MG CAPSULE PO PRN (12:43)
[2018-08-06 20:00] VITALS: BP 116/65
[2018-08-06] MEDS: TRAZODONE 100MG TABLET PO SCH (20:04)
[2018-08-07 00:12] VITALS: BP 123/70
[2018-08-07] MEDS: HYDROcodone/APAP 5/325 TABLET PO PRN ×3 (05:36→14:55)
[2018-08-07] MEDS: OMEPRAZOLE 20 MG CAPSULE.DR PO SCH (05:38)
[2018-08-07 06:10] LABS: BASOPHILS # (AUTO) 0.03 x10^3/uL (0-0.1); BASOPHILS % (AUTO) 0 % (0-1); EOSINOPHILS # (AUTO) 0.98 x10^3/uL (0-0.4); EOSINOPHILS % (AUTO) 12 % (1-7); LYMPHOCYTES # (AUTO) 2.06 x10^3/uL (1-3.4); LYMPHOCYTES % (AUTO) 26 % (22-44); MD NO; MEAN CORPUSCULAR HEMOGLOBIN 31.7 pg (27.0-34.8); MEAN CORPUSCULAR HGB CONC 32.9 g/dL (32.4-35.8); MEAN CORPUSCULAR VOLUME 96.4 fL (80-100); MEAN PLATELET VOLUME 7.3 fL (7.4-10.4); MONOCYTES # (AUTO) 0.48 x10^3/uL (0.2-0.8); MONOCYTES % (AUTO) 6 % (2-9); NEUTROPHILS # (AUTO) 4.39 x10^3/uL (1.8-6.8); NEUTROPHILS % (AUTO) 55 % (42-75); PLATELET COUNT 343 x10^3/uL (130-400); RED BLOOD COUNT 2.83 x10^6/uL (3.82-5.3); RED CELL DISTRIBUTION WIDTH 14.3 % (9.6-15.2)
[2018-08-07 06:19] LABS: ANION GAP 7 mmol/L (5-15); CALCIUM 8.5 mg/dL (8.5-10.1); CHLORIDE 114 mmol/L (98-107)
[2018-08-07 06:22] LABS: CREATININE 0.89 mg/dL (0.55-1.02)
[2018-08-07 07:18] VITALS: BP 124/64
[2018-08-07] MEDS: LACTOBACILLUS CHEW TABLET PO SCH (08:00)
[2018-08-07] MEDS: CALCIUM CARBONATE 500 MG TAB.CHEW PO SCH ×2 (08:00→19:56)
[2018-08-07] MEDS: CHOLECALCIFEROL 400 UNITS TABLET PO SCH (08:00)
[2018-08-07] MEDS: GABAPENTIN 300 MG CAPSULE PO PRN ×2 (08:00→21:49)
[2018-08-07] MEDS: MULTIVITAMIN 1 TABLET PO SCH (08:01)
[2018-08-07] MEDS: CYANOCOBALAMIN 1,000 MCG TABLET PO SCH (08:01)
[2018-08-07] MEDS: CETIRIZINE 10 MG TABLET PO SCH (08:01)
[2018-08-07] MEDS: CEFTRIAXONE PMX 1GM/50ML 50 ML IV SCH (11:02)
[2018-08-07 11:09] VITALS: BP 143/70
[2018-08-07] MEDS: HYDROmorphone 2 MG/ML, 1ML IVPush PRN ×3 (11:15→22:41)
[2018-08-07] MEDS ORDERED: MAGNESIUM HYDROXIDE 8%, 30ML UDC PO PRN (12:30)
[2018-08-07] MEDS ORDERED: MAGNESIUM CITRATE 300ML ORAL SOL PO PRN (12:30)
[2018-08-07 14:00] VITALS: BP 117/64
[2018-08-07 16:33] VITALS: BP 105/55
[2018-08-07] MEDS: PIPERACILLIN/TAZO/PMX 3.375GM 50 ML IV SCH ×2 (17:08→22:33)
[2018-08-07] MEDS: SODIUM CHLORIDE 0.45% 1,000 ML IV SCH (17:08)
[2018-08-07 19:01] VITALS: BP 127/64
[2018-08-07] MEDS: TRAZODONE 100MG TABLET PO SCH (19:56)
[2018-08-08 00:55] VITALS: BP 119/65
[2018-08-08] MEDS: HYDROmorphone 2 MG/ML, 1ML IVPush PRN ×6 (01:50→22:10)
[2018-08-08] MEDS: SODIUM CHLORIDE 0.45% 1,000 ML IV SCH (02:24)
[2018-08-08] MEDS: PIPERACILLIN/TAZO/PMX 3.375GM 50 ML IV SCH ×4 (04:48→22:10)
[2018-08-08] MEDS: OMEPRAZOLE 20 MG CAPSULE.DR PO SCH (05:32)
[2018-08-08 05:39] LABS: BASOPHILS # (AUTO) 0.05 x10^3/uL (0-0.1); BASOPHILS % (AUTO) 1 % (0-1); EOSINOPHILS # (AUTO) 0.99 x10^3/uL (0-0.4); EOSINOPHILS % (AUTO) 14 % (1-7); LYMPHOCYTES # (AUTO) 2.06 x10^3/uL (1-3.4); LYMPHOCYTES % (AUTO) 29 % (22-44); MD NO; MEAN CORPUSCULAR HEMOGLOBIN 31.6 pg (27.0-34.8); MEAN CORPUSCULAR HGB CONC 32.7 g/dL (32.4-35.8); MEAN CORPUSCULAR VOLUME 96.6 fL (80-100); MEAN PLATELET VOLUME 6.5 fL (7.4-10.4); MONOCYTES # (AUTO) 0.43 x10^3/uL (0.2-0.8); MONOCYTES % (AUTO) 6 % (2-9); NEUTROPHILS # (AUTO) 3.56 x10^3/uL (1.8-6.8); NEUTROPHILS % (AUTO) 50 % (42-75); PLATELET COUNT 315 x10^3/uL (130-400); RED BLOOD COUNT 2.75 x10^6/uL (3.82-5.3); RED CELL DISTRIBUTION WIDTH 13.9 % (9.6-15.2)
[2018-08-08 05:46] LABS: CHLORIDE 114 mmol/L (98-107)
[2018-08-08 05:55] LABS: ALANINE AMINOTRANSFERASE 13 U/L (12-78); ALBUMIN 2.3 g/dL (3.4-5.0); ALKALINE PHOSPHATASE 72 U/L (45-117); ANION GAP 5 mmol/L (5-15); BILIRUBIN,TOTAL 0.3 mg/dL (0.2-1.0); CALCIUM 8.3 mg/dL (8.5-10.1); CREATININE 0.84 mg/dL (0.55-1.02)
[2018-08-08 08:00] VITALS: BP 120/66
[2018-08-08] MEDS ORDERED: D5%-0.45% NACL 1,000 ML IV SCH (08:30)
[2018-08-08] MEDS: CALCIUM CARBONATE 500 MG TAB.CHEW PO SCH ×2 (08:46→21:17)
[2018-08-08] MEDS: MULTIVITAMIN 1 TABLET PO SCH (08:46)
[2018-08-08] MEDS: CYANOCOBALAMIN 1,000 MCG TABLET PO SCH (08:46)
[2018-08-08] MEDS: LACTOBACILLUS CHEW TABLET PO SCH (08:46)
[2018-08-08] MEDS: HYDROcodone/APAP 5/325 TABLET PO PRN ×3 (10:32→21:16)
[2018-08-08 14:00] VITALS: BP 109/62
[2018-08-08] MEDS: DIAZEPAM 5 MG TABLET PO PRN (16:08)
[2018-08-08] MEDS: GABAPENTIN 300 MG CAPSULE PO PRN (17:29)
[2018-08-08 18:29] VITALS: BP 130/69
[2018-08-08] MEDS: TRAZODONE 100MG TABLET PO SCH (21:16)
[2018-08-09] MEDS: DIAZEPAM 5 MG TABLET PO PRN ×4 (00:37→18:35)
[2018-08-09 00:38] VITALS: BP 119/64
[2018-08-09] MEDS: PIPERACILLIN/TAZO/PMX 3.375GM 50 ML IV SCH ×4 (04:37→22:52)
[2018-08-09] MEDS: HYDROcodone/APAP 5/325 TABLET PO PRN ×5 (04:37→21:17)
[2018-08-09] MEDS: GABAPENTIN 300 MG CAPSULE PO PRN ×2 (04:48→18:35)
[2018-08-09] MEDS: OMEPRAZOLE 20 MG CAPSULE.DR PO SCH (06:05)
[2018-08-09] MEDS: HYDROmorphone 2 MG/ML, 1ML IVPush PRN ×3 (06:05→15:06)
[2018-08-09 07:36] VITALS: BP 126/71
[2018-08-09] MEDS: CYANOCOBALAMIN 1,000 MCG TABLET PO SCH (08:25)
[2018-08-09] MEDS: MULTIVITAMIN 1 TABLET PO SCH (08:25)
[2018-08-09] MEDS: LACTOBACILLUS CHEW TABLET PO SCH (08:25)
[2018-08-09] MEDS: CALCIUM CARBONATE 500 MG TAB.CHEW PO SCH ×2 (08:25→21:16)
[2018-08-09 10:16] LABS: ALBUMIN 2.6 g/dL (3.4-5.0); ANION GAP 5 mmol/L (5-15); CALCIUM 8.2 mg/dL (8.5-10.1); CHLORIDE 113 mmol/L (98-107); CREATININE 0.91 mg/dL (0.55-1.02)
[2018-08-09 19:50] VITALS: BP 125/72
[2018-08-09] MEDS: TRAZODONE 100MG TABLET PO SCH (21:16)
[2018-08-10] MEDS: DIAZEPAM 5 MG TABLET PO PRN ×3 (01:39→21:25)
[2018-08-10 01:45] VITALS: BP 127/70
[2018-08-10] MEDS: HYDROmorphone 2 MG/ML, 1ML IVPush PRN ×4 (02:42→18:11)
[2018-08-10] MEDS: PIPERACILLIN/TAZO/PMX 3.375GM 50 ML IV SCH (04:40)
[2018-08-10 05:20] LABS: BASOPHILS # (AUTO) 0.04 x10^3/uL (0-0.1); BASOPHILS % (AUTO) 1 % (0-1); EOSINOPHILS # (AUTO) 0.81 x10^3/uL (0-0.4); EOSINOPHILS % (AUTO) 11 % (1-7); LYMPHOCYTES # (AUTO) 1.72 x10^3/uL (1-3.4); LYMPHOCYTES % (AUTO) 23 % (22-44); MD NO; MEAN CORPUSCULAR HEMOGLOBIN 31.6 pg (27.0-34.8); MEAN CORPUSCULAR VOLUME 95.7 fL (80-100); MONOCYTES % (AUTO) 5 % (2-9); NEUTROPHILS # (AUTO) 4.53 x10^3/uL (1.8-6.8); NEUTROPHILS % (AUTO) 60 % (42-75); PLATELET COUNT 318 x10^3/uL (130-400); RED BLOOD COUNT 2.86 x10^6/uL (3.82-5.3); RED CELL DISTRIBUTION WIDTH 14.2 % (9.6-15.2)
[2018-08-10 05:36] LABS: CHLORIDE 115 mmol/L (98-107)
[2018-08-10 05:45] LABS: ALANINE AMINOTRANSFERASE 12 U/L (12-78); ALBUMIN 2.4 g/dL (3.4-5.0); ALKALINE PHOSPHATASE 84 U/L (45-117); ANION GAP 5 mmol/L (5-15); BILIRUBIN,TOTAL 0.2 mg/dL (0.2-1.0); CALCIUM 8.3 mg/dL (8.5-10.1); TOTAL PROTEIN 5.5 g/dL (6.4-8.2)
[2018-08-10] MEDS: OMEPRAZOLE 20 MG CAPSULE.DR PO SCH (06:15)
[2018-08-10] MEDS: HYDROcodone/APAP 5/325 TABLET PO PRN ×3 (06:22→15:45)
[2018-08-10] MEDS: GABAPENTIN 300 MG CAPSULE PO PRN ×2 (06:22→21:26)
[2018-08-10] MEDS: CALCIUM CARBONATE 500 MG TAB.CHEW PO SCH ×2 (07:40→21:26)
[2018-08-10] MEDS: CYANOCOBALAMIN 1,000 MCG TABLET PO SCH (07:40)
[2018-08-10] MEDS: LACTOBACILLUS CHEW TABLET PO SCH (07:40)
[2018-08-10] MEDS: MULTIVITAMIN 1 TABLET PO SCH (07:40)
[2018-08-10 08:10] VITALS: BP 153/81
[2018-08-10] MEDS ORDERED: DEXTROSE 5% 1,000 ML IV SCH (09:00)
[2018-08-10] MEDS: CEFTAZIDIME PMX 2 GM/50ML 50 ML IV SCH ×2 (09:14→18:12)
[2018-08-10] MEDS ORDERED: CEFT2VIA29 IV (10:38)
[2018-08-10] MEDS ORDERED: METH500T97 PO (10:38)
[2018-08-10] MEDS ORDERED: HYDR-3307 PO (10:38)
[2018-08-10 12:30] VITALS: BP 137/70
[2018-08-10 20:00] VITALS: BP 158/69
[2018-08-10] MEDS: TRAZODONE 100MG TABLET PO SCH (21:25)
[2018-08-11] MEDS: HYDROmorphone 2 MG/ML, 1ML IVPush PRN ×3 (00:52→09:59)
[2018-08-11 01:31] VITALS: BP 150/71
[2018-08-11] MEDS: CEFTAZIDIME PMX 2 GM/50ML 50 ML IV SCH ×2 (02:18→09:59)
[2018-08-11 05:44] LABS: ALBUMIN 2.5 g/dL (3.4-5.0); ANION GAP 4 mmol/L (5-15); CALCIUM 8.5 mg/dL (8.5-10.1); CHLORIDE 114 mmol/L (98-107)
[2018-08-11 05:45] LABS: MEAN CORPUSCULAR HEMOGLOBIN 31.7 pg (27.0-34.8); MEAN CORPUSCULAR HGB CONC 33.1 g/dL (32.4-35.8); MEAN CORPUSCULAR VOLUME 95.7 fL (80-100); MEAN PLATELET VOLUME 6.9 fL (7.4-10.4); PLATELET COUNT 318 x10^3/uL (130-400); RED BLOOD COUNT 3.02 x10^6/uL (3.82-5.3); RED CELL DISTRIBUTION WIDTH 13.5 % (9.6-15.2)
[2018-08-11 05:46] LABS: CREATININE 0.72 mg/dL (0.55-1.02)
[2018-08-11] MEDS: OMEPRAZOLE 20 MG CAPSULE.DR PO SCH (05:47)
[2018-08-11 06:23] VITALS: BP 148/82
[2018-08-11 06:35] LABS: MD YES
[2018-08-11 06:37] LABS: <PLATELET ESTIMATE> ADEQUATE; <PLT MORPHOLOGY> NORMAL PLT MORPH; <RBC MORPHOLOGY> NORMAL; EOS#(MANUAL) 0.98 x10^3/uL (0.0-0.4); EOS% (MANUAL) 13 % (1-7); LYMPH#(MANUAL) 1.95 x10^3/uL (1-3.4); LYMPHS% (MANUAL) 26 % (22-44); MONOS#(MANUAL) 0.38 x10^3/uL (0.3-2.7); MONOS% (MANUAL) 5 % (2-9); SEGS% (MANUAL) 56 % (42-75)
[2018-08-11] MEDS ORDERED: POLY17PO5 PO (07:43)
[2018-08-11] MEDS ORDERED: SENN17.23 PO (07:45)
[2018-08-11] MEDS: LACTOBACILLUS CHEW TABLET PO SCH (08:44)
[2018-08-11] MEDS: MULTIVITAMIN 1 TABLET PO SCH (08:44)
[2018-08-11] MEDS: CALCIUM CARBONATE 500 MG TAB.CHEW PO SCH (08:44)
[2018-08-11] MEDS: CYANOCOBALAMIN 1,000 MCG TABLET PO SCH (08:45)
[2018-08-11] MEDS ORDERED: TAMSULOSIN 0.4 MG CAP.ER.24H PO SCH (13:00)
[2018-08-11 13:59] VITALS: BP 159/74
[2018-08-11] MEDS: DIAZEPAM 5 MG TABLET PO PRN (14:55)
== END 2018-08-11 16:02 | DRG 871 ==
LOC: ED 15:30 → EDIP 18:30 → 3NE 19:28
PROVIDERS: ADMIT Internal Medicine; ATTEND Internal Medicine
PROC: 0JQ03ZZ Repair Scalp Subcutaneous Tissue and Fascia, Percutaneous Approach (ICD-10-PCS; principal; 2018-08-05)
DX: A41.9 Sepsis, unspecified organism (principal); E43 Unspecified severe protein-calorie malnutrition; E87.0 Hyperosmolality and hypernatremia; D64.9 Anemia, unspecified; N30.90 Cystitis, unspecified without hematuria; G89.29 Other chronic pain; S01.01XA Laceration without foreign body of scalp, initial encounter; M54.9 Dorsalgia, unspecified; B96.5 Pseudomonas (aeruginosa) (mallei) (pseudomallei) as the cause of diseases classified elsewhere; M62.838 Other muscle spasm; W18.30XA Fall on same level, unspecified, initial encounter; K21.9 Gastro-esophageal reflux disease without esophagitis; Z98.1 Arthrodesis status; Z68.25 Body mass index [BMI] 25.0-25.9, adult; Z85.43 Personal history of malignant neoplasm of ovary; Z87.891 Personal history of nicotine dependence; Z90.710 Acquired absence of both cervix and uterus; Y99.8 Other external cause status; Y93.89 Activity, other specified; Y92.098 Other place in other non-institutional residence as the place of occurrence of the external cause; Z90.10 Acquired absence of unspecified breast and nipple; Z90.49 Acquired absence of other specified parts of digestive tract; Z88.1 Allergy status to other antibiotic agents; Z88.5 Allergy status to narcotic agent; Z91.048 Other nonmedicinal substance allergy status
CPT/HCPCS: 12002; 36415; 70450; 72072; 72110; 80048; 80053; 80061; 81001; 82040; 83036; 83735; 84100; 84439; 84443; 85025; 87077; 87086; 87186; 90471; 90715; 96365; G0378; J0696; J1170; J2543; J7070; J0713; J2800; J7030

== ENCOUNTER 2018-12-24 08:55 | Day surgery (SDC) | payer MEDICARE, MEDICAID ==
[~2018-12-24] VITALS: Ht 165.1 cm; Wt 61.2 kg
[~2018-12-24 08:55] MED LIST changes: +BUPIVACAINE/EPI 0.5% 1:200K ONE; +CEFT2VIA29 IV; +HYDR-36 PO; +METH500T97 PO; +NAPR-685 PO; +SENN17.23 PO
[2018-12-24 09:29] VITALS: BP 99/62
[2018-12-24] MEDS ORDERED: LACTATED RINGERS 1,000 ML IV SCH (09:37)
[2018-12-24] MEDS ORDERED: GABAPENTIN 300 MG CAPSULE ONE (11:00)
[2018-12-24] MEDS ORDERED: OMNIPAQUE 180 MG/ML, 20ML VIAL ONE (11:00)
[2018-12-24] MEDS ORDERED: ACETAMINOPHEN 500 MG TABLET ONE (11:00)
[2018-12-24] MEDS ORDERED: FENTANYL PF 250 MCG/5ML ONE (11:09)
[2018-12-24] MEDS ORDERED: MIDAZOLAM 1 MG/ML, 2ML ONE (11:09)
[2018-12-24] MEDS ORDERED: ONDANSETRON 2MG/ML, 2ML ONE (11:49)
[2018-12-24] MEDS ORDERED: SUCCINYLCHOLINE 20 MG/ML, 10ML ONE (11:49)
[2018-12-24] MEDS ORDERED: GLYCOPYRROLATE 0.2MG/1ML, 5ML ONE (11:49)
[2018-12-24] MEDS ORDERED: ROCURONIUM 10MG/ML,5ML ONE (11:49)
[2018-12-24] MEDS ORDERED: DEXAMETHASONE 4 MG/ML, 1ML ONE (11:49)
[2018-12-24] MEDS ORDERED: CEFAZOLIN 1,000 MG ONE (11:49)
[2018-12-24] MEDS ORDERED: PROPOFOL 10 MG/ML, 20ML ONE (11:49)
[2018-12-24] MEDS ORDERED: NEOSTIGMINE 1 MG/ML, 10ML ONE (11:49)
[2018-12-24] MEDS ORDERED: SUGAMMADEX 200 MG/2 ML IVPush ONE ×2 (11:49)
[2018-12-24] MEDS ORDERED: ACETAMINOPHEN 325 MG TABLET PO PRN (12:00)
[2018-12-24] MEDS ORDERED: OXYcodone 5 MG/5 ML ORAL.SOL UDC PO PRN (12:00)
[2018-12-24] MEDS ORDERED: HYDROmorphone 2 MG/ML, 1ML IVPush PRN (12:00)
[2018-12-24] MEDS ORDERED: FENTANYL PF 100 MCG/2ML IV PRN (12:00)
[2018-12-24] MEDS ORDERED: LABETALOL 5MG/ML, 20ML IV PRN (12:00)
[2018-12-24] MEDS ORDERED: DIAZEPAM 5 MG/ML, 2ML IVPush PRN (12:00)
[2018-12-24] MEDS ORDERED: PROMETHAZINE 25 MG/ML, 1ML IV PRN (12:00)
[2018-12-24] MEDS ORDERED: ALBUTEROL SULFATE 2.5 MG/3 ML NPPB PRN (12:00)
[2018-12-24] MEDS ORDERED: KETOROLAC 30 MG/1 ML IV PRN (12:00)
[2018-12-24] MEDS ORDERED: hydrALAzine 20 MG/ML, 1ML IV PRN (12:00)
[2018-12-24] MEDS ORDERED: MEPERIDINE/PF 25MG/0.5ML IVPush PRN (12:00)
[2018-12-24] MEDS ORDERED: OXYcodone 5 MG/5 ML ORAL.SOL UDC ONE (12:31)
== END 2018-12-24 13:35 | disposition home or self-care (01) ==
LOC: OUT 08:55
PROVIDERS: ATTEND Orthopaedic Surgery Orthopaedic Surgery of the Spine
DX: M80.08XA Age-related osteoporosis with current pathological fracture, vertebra(e), initial encounter for fracture (principal); M41.9 Scoliosis, unspecified; M48.07 Spinal stenosis, lumbosacral region; M54.9 Dorsalgia, unspecified; G89.29 Other chronic pain; M48.061 Spinal stenosis, lumbar region without neurogenic claudication; Z79.891 Long term (current) use of opiate analgesic; Z79.899 Other long term (current) drug therapy; Z88.5 Allergy status to narcotic agent; Z88.8 Allergy status to other drugs, medicaments and biological substances; Z91.048 Other nonmedicinal substance allergy status
CPT/HCPCS: 01936; 22513; 72072; 76000; 88307; 88311; C1713; J0690; J1100; J2250; J2405; J2704; J2710; J3010; J7120; Q9965; J0330